=== PATIENT | male | born 1950 | race African-American/Black ===

== ENCOUNTER 2016-11-15 05:03 | Emergency (ER) | payer OTHER ==
[~2016-11-15] VITALS: Ht 182.9 cm; Wt 106.4 kg
[~2016-11-15 05:03] MED LIST: ALLOPURINOL100 MG PO; AMBIEN10 MG PO; Ambien PO; CARDIZEM30 MG PO; DICLOFENAC PO; ENDOCET 5-3251 EACH PO; FLEXERIL10 MG PO; GABAPENTIN PO; KADIAN30 MG PO; LISINOPRIL PO; METOCLOPRAMIDE10 MG PO; MORPHINE SULFAT15 M1 PO; MS CONTIN,ORAMO30 MG PO; MS Contin,Oramorph S PO; NEURONTIN300 MG PO; NEURONTIN600 MG PO; NOHOMEMEDS; Neurontin PO; OXYCODONE HCL20 M1 PO; PERCOCET 10-321 EACH PO; PERCOCET 10/1 TABLET PO; PERCOCET 5/31 TABLET PO; PERCOCET PO; PROTONIX40 MG PO; Protonix PO; TYLENOL REGULA325 MG PO; Voltaren PO; ZESTRIL,PRINIVI10 M1 PO; ZOFRAN4 MG PO; Zestoretic,Prinzide PO; oxyCODONE PO
[2016-11-15 05:57] LABS: CHLORIDE 104 mEq/L (99-109); POTASSIUM 3.6 mEq/L (3.7-5.4); SODIUM 136 mEq/L (136-147)
[2016-11-15 06:01] LABS: ANION GAP 9 MEQ/L (2-14)
[2016-11-15 06:02] LABS: TOTAL BILIRUBIN 0.8 mg/dL (0.0-1.0)
[2016-11-15 06:08] LABS: TROP-I INTERPRETATION NEGATIVE; TROPONIN-I 0.02 ng/mL (0.0-0.30)
[2016-11-15 06:09] LABS: EOSINOPHIL (%) 3.3 % (0-5); EOSINOPHIL COUNT 0.3 K/uL (0-0.3); GLUCOSE 146 mg/dL (70-99); HEMATOCRIT 38.1 % (38.0-50.0); IMMATURE GRANULOCYTE (%) 0.5 % (0.0-0.7); IMMATURE GRANULOCYTE COUNT 0.1 K/uL; INSTRUMENT ABS NEUTROPHIL CT 6.3 K/uL; LYMPHOCYTE COUNT 2.2 K/uL (1.0-2.8); MCH 24.1 PG (29.0-34.0); MCHC 31.2 G/DL (30.0-36.0); MCV 77.3 FL (86-99); MEAN PLAT.VOLUME 10.7 uM^3 (9.0-12.4); MONOCYTE (%) 7.6 % (3-12); MONOCYTE COUNT 0.7 K/uL (0-0.8); NEUTROPHIL (%) 65.9 % (45-76); NEUTROPHIL COUNT 6.3 K/uL (1.8-6.4); PLATELET COUNT 237 K/uL (156-360); RBC DIS.WIDTH-CV 14.6 % (11.8-14.6); RBC DIS.WIDTH-SD 40.5 % (39-53); RED BLOOD COUNT 4.93 M/uL (4.00-5.50); WHITE BLOOD COUNT 9.6 K/uL (4.1-10.2)
[2016-11-15 06:12] LABS: SERUM ETHYL ALCOHOL < 10 mg/dL
[2016-11-15 06:13] LABS: ALKALINE PHOSPHATASE 89 IU/L (3-129); GFR ESTIMATE (CALCULATED) > 59 mL/min/
[2016-11-15 06:14] LABS: UREA NITROGEN (BUN) 16 mg/dL (9-23)
[2016-11-15 07:21] LABS: AMPHETAMINE NEGATIVE (500 ng/mL); BENZODIAZEPINES NEGATIVE (150 ng/mL); COCAINE PRESUMPTIVE POSITIVE (150 ng/mL); METHAMPHETAMINE NEGATIVE (500 ng/mL); OPIATES (MORPHINE) PRESUMPTIVE POSITIVE (100 ng/mL); PHENCYCLIDINE NEGATIVE (25 ng/mL); THC CANNABINOIDS NEGATIVE (50 ng/mL); TRICYCLIC ANTIDEPRESSANTS NEGATIVE (300 ng/mL)
[2016-11-15 07:22] LABS: ADD MEDTOX COMMENT Y; BARBITURATES NEGATIVE (200 ng/mL); INTERNAL CONTROLS VALID? YES; METHADONE PRESUMPTIVE POSITIVE (200 ng/mL); OXYCODONE NEGATIVE (100 ng/mL); PROPOXYPHENE NEGATIVE (300 ng/mL)
[2016-11-15 08:05] LABS: SALICYLATE < 5.0 MG/DL (15-30)
[2016-11-15 08:58] VITALS: BP 112/81
== END 2016-11-15 09:00 ==
LOC: EME → EDBD 05:03 → EME 05:03
PROVIDERS: Emergency Medicine
DX: F19.10 Other psychoactive substance abuse, uncomplicated (principal); F11.90 Opioid use, unspecified, uncomplicated; F14.90 Cocaine use, unspecified, uncomplicated; G89.29 Other chronic pain; Z86.718 Personal history of other venous thrombosis and embolism; F17.200 Nicotine dependence, unspecified, uncomplicated
CPT/HCPCS: 71020; 80053; 84484; 84999; 85025; 93005; 99281; 99285; G0480

== ENCOUNTER 2017-03-11 15:17 | Emergency (ER) | payer OTHER ==
[~2017-03-11] VITALS: Ht 190.5 cm; Wt 104.0 kg
[2017-03-11 16:14] LABS: HEMATOCRIT 36.6 % (38.0-50.0); MCH 24.1 PG (29.0-34.0); MCHC 31.1 G/DL (30.0-36.0); MCV 77.2 FL (86-99); PLATELET COUNT 212 K/uL (156-360); RBC DIS.WIDTH-CV 15.1 % (11.8-14.6); RBC DIS.WIDTH-SD 41.4 % (39-53); RED BLOOD COUNT 4.74 M/uL (4.00-5.50)
[2017-03-11 16:22] LABS: CHLORIDE 107 mEq/L (99-109); POTASSIUM 3.6 mEq/L (3.7-5.4); SODIUM 141 mEq/L (136-147)
[2017-03-11 16:24] LABS: GLUCOSE 96 mg/dL (70-99)
[2017-03-11 16:25] LABS: ANION GAP 10 MEQ/L (2-14)
[2017-03-11 16:26] LABS: INTER. NORMALIZED RATIO 1.1; PTT 24.7 (25-32)
[2017-03-11 16:27] LABS: SERUM ETHYL ALCOHOL < 10 mg/dL
[2017-03-11 16:28] LABS: GFR ESTIMATE (CALCULATED) > 59 mL/min/
[2017-03-11 16:29] LABS: UREA NITROGEN (BUN) 8 mg/dL (9-23)
[2017-03-11 16:35] LABS: TROP-I INTERPRETATION NEGATIVE; TROPONIN-I < 0.01 ng/mL (0.0-0.30)
[2017-03-11 18:34] LABS: COCAINE PRESUMPTIVE POSITIVE (150 ng/mL); METHAMPHETAMINE NEGATIVE (500 ng/mL); PHENCYCLIDINE NEGATIVE (25 ng/mL); THC CANNABINOIDS NEGATIVE (50 ng/mL)
[2017-03-11 18:35] LABS: ADD MEDTOX COMMENT Y; AMPHETAMINE NEGATIVE (500 ng/mL); BARBITURATES NEGATIVE (200 ng/mL); BENZODIAZEPINES NEGATIVE (150 ng/mL); INTERNAL CONTROLS VALID? YES; METHADONE NEGATIVE (200 ng/mL); OPIATES (MORPHINE) PRESUMPTIVE POSITIVE (100 ng/mL); OXYCODONE NEGATIVE (100 ng/mL); PROPOXYPHENE NEGATIVE (300 ng/mL); TRICYCLIC ANTIDEPRESSANTS NEGATIVE (300 ng/mL)
[2017-03-11] MEDS ORDERED: XARELTO15 MG PO (21:10)
[2017-03-11 21:31] VITALS: BP 157/75
== END 2017-03-11 21:33 | disposition home or self-care (01) ==
LOC: EME 15:17
PROVIDERS: Emergency Medicine
DX: I82.431 Acute embolism and thrombosis of right popliteal vein (principal); I80.01 Phlebitis and thrombophlebitis of superficial vessels of right lower extremity; I82.511 Chronic embolism and thrombosis of right femoral vein; F14.988 Cocaine use, unspecified with other cocaine-induced disorder; R07.89 Other chest pain; M79.605 Pain in left leg; R20.2 Paresthesia of skin; R60.0 Localized edema; Z79.891 Long term (current) use of opiate analgesic; Z59.0 Homelessness; F17.200 Nicotine dependence, unspecified, uncomplicated
CPT/HCPCS: 71020; 71275; 80048; 84484; 84999; 85027; 85610; 85730; 93005; 93971; 99281; 99285; G0480

== ENCOUNTER 2017-04-13 19:45 | Emergency (ER) | payer OTHER ==
[~2017-04-13] VITALS: Ht 190.5 cm; Wt 97.8 kg
[~2017-04-13 19:45] MED LIST changes: +XARELTO15 MG PO
[2017-04-13 20:34] LABS: HEMATOCRIT 35.6 % (38.0-50.0); MCH 24.2 PG (29.0-34.0); MCV 75.4 FL (86-99); MEAN PLAT.VOLUME 9.8 uM^3 (9.0-12.4); PLATELET COUNT 196 K/uL (156-360); RBC DIS.WIDTH-CV 14.6 % (11.8-14.6); RBC DIS.WIDTH-SD 40.3 % (39-53); RED BLOOD COUNT 4.72 M/uL (4.00-5.50); WHITE BLOOD COUNT 5.7 K/uL (4.1-10.2)
[2017-04-13 20:38] LABS: CHLORIDE 110 mEq/L (99-109); SODIUM 141 mEq/L (136-147)
[2017-04-13 20:40] LABS: GLUCOSE 88 mg/dL (70-99)
[2017-04-13 20:41] LABS: ANION GAP 9 MEQ/L (2-14)
[2017-04-13 20:43] LABS: GFR ESTIMATE (CALCULATED) > 59 mL/min/
[2017-04-13 20:44] LABS: UREA NITROGEN (BUN) 12 mg/dL (9-23)
[2017-04-13 20:50] LABS: TROP-I INTERPRETATION NEGATIVE; TROPONIN-I < 0.01 ng/mL (0.0-0.30)
[2017-04-13 21:33] LABS: POINT-OF-CARE METER ID UU13113702
[2017-04-13 21:35] LABS: INTER. NORMALIZED RATIO 1.1; PROTHROMBIN TIME 12.5 SEC (10.2-12.9)
[2017-04-13 21:38] LABS: PTT 27.6 SEC (25-37)
[2017-04-13 23:02] LABS: TROP-I INTERPRETATION NEGATIVE; TROPONIN-I < 0.01 ng/mL (0.0-0.30)
[2017-04-13] MEDS ORDERED: AZITHROMYCIN250 MG1 PO (23:45)
[2017-04-14 00:26] VITALS: BP 130/76
== END 2017-04-14 00:31 | disposition home or self-care (01) ==
LOC: EME → EDBD 19:45 → EME 19:45
PROVIDERS: Emergency Medicine
DX: J40 Bronchitis, not specified as acute or chronic (principal); R07.9 Chest pain, unspecified; I10 Essential (primary) hypertension; F17.200 Nicotine dependence, unspecified, uncomplicated; Z86.718 Personal history of other venous thrombosis and embolism; Z88.6 Allergy status to analgesic agent; Z88.5 Allergy status to narcotic agent
CPT/HCPCS: 71020; 80048; 82948; 84484; 85027; 85610; 85730; 93005; 99281; 99285

== ENCOUNTER 2017-04-25 12:54 | Emergency (ER) | payer OTHER ==
[~2017-04-25] VITALS: Ht 190.5 cm; Wt 105.0 kg
[~2017-04-25 12:54] MED LIST changes: +AZITHROMYCIN250 MG1 PO
[2017-04-25] MEDS ORDERED: MOTRIN800 MG PO (15:47)
[2017-04-25 16:10] VITALS: BP 138/84
[2017-04-26] MEDS ORDERED: XARELTO10 MG PO (16:11)
== END 2017-04-25 16:15 | disposition home or self-care (01) ==
LOC: EME 12:54
DX: M79.604 Pain in right leg (principal); M79.605 Pain in left leg; M79.89 Other specified soft tissue disorders; R06.02 Shortness of breath; M71.22 Synovial cyst of popliteal space [Baker], left knee; Z86.718 Personal history of other venous thrombosis and embolism; I10 Essential (primary) hypertension; G89.29 Other chronic pain; F17.200 Nicotine dependence, unspecified, uncomplicated; F14.90 Cocaine use, unspecified, uncomplicated; Z88.6 Allergy status to analgesic agent
CPT/HCPCS: 93005; 93970; 99281; 99284

== ENCOUNTER 2017-04-26 12:01 | Inpatient (IN) | payer OTHER ==
[~2017-04-26] VITALS: Ht 190.5 cm; Wt 97.7 kg
[~2017-04-26 12:01] MED LIST changes: +MOTRIN800 MG PO
[2017-04-26 14:02] LABS: PHENCYCLIDINE NEGATIVE (25 ng/mL); THC CANNABINOIDS NEGATIVE (50 ng/mL)
[2017-04-26 14:03] LABS: ADD MEDTOX COMMENT Y; AMPHETAMINE NEGATIVE (500 ng/mL); BARBITURATES NEGATIVE (200 ng/mL); BENZODIAZEPINES NEGATIVE (150 ng/mL); COCAINE PRESUMPTIVE POSITIVE (150 ng/mL); INTERNAL CONTROLS VALID? YES; METHADONE NEGATIVE (200 ng/mL); METHAMPHETAMINE NEGATIVE (500 ng/mL); OPIATES (MORPHINE) PRESUMPTIVE POSITIVE (100 ng/mL); OXYCODONE NEGATIVE (100 ng/mL); PROPOXYPHENE NEGATIVE (300 ng/mL); TRICYCLIC ANTIDEPRESSANTS NEGATIVE (300 ng/mL)
[2017-04-26 14:21] LABS: EOSINOPHIL (%) 1.8 % (0-5); EOSINOPHIL COUNT 0.1 K/uL (0-0.3); HEMATOCRIT 36.9 % (38.0-50.0); IMMATURE GRANULOCYTE (%) 0.4 % (0.0-0.7); INSTRUMENT ABS NEUTROPHIL CT 3.9 K/uL; MCH 23.9 PG (29.0-34.0); MCHC 31.2 G/DL (30.0-36.0); MCV 76.7 FL (86-99); MEAN PLAT.VOLUME 10.1 uM^3 (9.0-12.4); MONOCYTE (%) 10.3 % (3-12); MONOCYTE COUNT 0.6 K/uL (0-0.8); NEUTROPHIL (%) 69.7 % (45-76); NEUTROPHIL COUNT 3.9 K/uL (1.8-6.4); PLATELET COUNT 185 K/uL (156-360); RBC DIS.WIDTH-SD 41.2 % (39-53); RED BLOOD COUNT 4.81 M/uL (4.00-5.50); WHITE BLOOD COUNT 5.5 K/uL (4.1-10.2)
[2017-04-26 14:29] LABS: CHLORIDE 110 mEq/L (99-109); POTASSIUM 3.8 mEq/L (3.7-5.4); SODIUM 144 mEq/L (136-147)
[2017-04-26 14:31] LABS: GLUCOSE 118 mg/dL (70-99)
[2017-04-26 14:33] LABS: ANION GAP 9 MEQ/L (2-14); TOTAL BILIRUBIN 0.8 mg/dL (0.0-1.0)
[2017-04-26 14:34] LABS: SERUM ETHYL ALCOHOL < 10 mg/dL
[2017-04-26 14:35] LABS: ALKALINE PHOSPHATASE 79 IU/L (3-129); GFR ESTIMATE (CALCULATED) > 59 mL/min/
[2017-04-26 14:36] LABS: UREA NITROGEN (BUN) 9 mg/dL (9-23)
[2017-04-26] MEDS ORDERED: XARELTO10 MG PO (16:11)
[2017-04-26 16:21] VITALS: BP 165/88
[2017-04-27 07:48] VITALS: BP 144/71
[2017-04-27 16:13] VITALS: BP 124/66
[2017-04-28 07:22] VITALS: BP 112/68
[2017-04-28 15:33] VITALS: BP 142/74
[2017-04-29 07:38] VITALS: BP 145/80
[2017-04-29 15:34] VITALS: BP 126/65
[2017-04-30 07:46] VITALS: BP 172/93
[2017-04-30 16:05] VITALS: BP 158/79
[2017-05-01 07:48] VITALS: BP 175/86
[2017-05-01] MEDS ORDERED: ROPINIROLE HCL1 MG PO (10:17)
[2017-05-01] MEDS ORDERED: DICLOFENAC SODI75 MG PO (10:17)
[2017-05-01] MEDS ORDERED: CITALOPRAM HBR20 MG PO (10:17)
== END 2017-05-01 13:00 | disposition home or self-care (01) | DRG 897 ==
LOC: EME 12:01 → EDOF 15:16 → 1WEST 15:16 → ENRESERV 15:56 → 1WEST 16:11
PROVIDERS: Emergency Medicine
DX: F11.23 Opioid dependence with withdrawal (principal); F14.20 Cocaine dependence, uncomplicated; F33.9 Major depressive disorder, recurrent, unspecified; R45.851 Suicidal ideations; F17.210 Nicotine dependence, cigarettes, uncomplicated; G25.81 Restless legs syndrome; G89.4 Chronic pain syndrome; I10 Essential (primary) hypertension; M17.0 Bilateral primary osteoarthritis of knee; M47.816 Spondylosis without myelopathy or radiculopathy, lumbar region
CPT/HCPCS: 80053; 84999; 85025; 90839; 97150 GO; 97165 GO; 99281; 99285; G0480; J0572; J0574; Q0177

== ENCOUNTER 2017-05-12 11:51 | Emergency (ER) | payer OTHER ==
[~2017-05-12] VITALS: Ht 190.5 cm; Wt 89.0 kg
[~2017-05-12 11:51] MED LIST changes: +CITALOPRAM HBR20 MG PO; +DICLOFENAC SODI75 MG PO; +ROPINIROLE HCL1 MG PO; +XARELTO10 MG PO
[2017-05-12 12:26] LABS: HEMATOCRIT 36.8 % (38.0-50.0); MCH 24.4 PG (29.0-34.0); MCHC 31.8 G/DL (30.0-36.0); MCV 76.8 FL (86-99); PLATELET COUNT 210 K/uL (156-360); RBC DIS.WIDTH-CV 15.3 % (11.8-14.6); RBC DIS.WIDTH-SD 41.9 % (39-53); RED BLOOD COUNT 4.79 M/uL (4.00-5.50); WHITE BLOOD COUNT 7.3 K/uL (4.1-10.2)
[2017-05-12 12:36] LABS: INTER. NORMALIZED RATIO 1.2; PROTHROMBIN TIME 12.7 SEC (10.2-12.9)
[2017-05-12 12:39] LABS: PTT 29.6 SEC (25-37)
[2017-05-12 12:41] LABS: CHLORIDE 109 mEq/L (99-109); SODIUM 142 mEq/L (136-147)
[2017-05-12 12:42] LABS: GLUCOSE 93 mg/dL (70-99)
[2017-05-12 12:44] LABS: ANION GAP 8 MEQ/L (2-14)
[2017-05-12 12:45] LABS: SERUM ETHYL ALCOHOL < 10 mg/dL
[2017-05-12 12:46] LABS: GFR ESTIMATE (CALCULATED) > 59 mL/min/
[2017-05-12 12:47] LABS: TROP-I INTERPRETATION NEGATIVE; TROPONIN-I < 0.01 ng/mL (0.0-0.30); UREA NITROGEN (BUN) 8 mg/dL (9-23)
[2017-05-12 13:19] LABS: AMPHETAMINE NEGATIVE (500 ng/mL); BARBITURATES NEGATIVE (200 ng/mL); BENZODIAZEPINES NEGATIVE (150 ng/mL); COCAINE PRESUMPTIVE POSITIVE (150 ng/mL); INTERNAL CONTROLS VALID? YES; METHADONE NEGATIVE (200 ng/mL); METHAMPHETAMINE NEGATIVE (500 ng/mL); OPIATES (MORPHINE) PRESUMPTIVE POSITIVE (100 ng/mL); OXYCODONE NEGATIVE (100 ng/mL); PHENCYCLIDINE NEGATIVE (25 ng/mL); PROPOXYPHENE NEGATIVE (300 ng/mL); THC CANNABINOIDS NEGATIVE (50 ng/mL); TRICYCLIC ANTIDEPRESSANTS NEGATIVE (300 ng/mL)
[2017-05-12 13:20] LABS: ADD MEDTOX COMMENT Y
[2017-05-12 15:27] LABS: TROP-I INTERPRETATION NEGATIVE; TROPONIN-I < 0.01 ng/mL (0.0-0.30)
[2017-05-12 19:22] VITALS: BP 163/97
== END 2017-05-12 19:35 | disposition home or self-care (01) ==
LOC: EME 11:51
PROVIDERS: Emergency Medicine
DX: R07.9 Chest pain, unspecified (principal); F14.10 Cocaine abuse, uncomplicated; F32.9 Major depressive disorder, single episode, unspecified; F34.1 Dysthymic disorder; F11.20 Opioid dependence, uncomplicated; I10 Essential (primary) hypertension; F17.200 Nicotine dependence, unspecified, uncomplicated; Z87.442 Personal history of urinary calculi; Z86.718 Personal history of other venous thrombosis and embolism; Z88.6 Allergy status to analgesic agent
CPT/HCPCS: 71020; 80048; 84484; 84999; 85027; 85610; 85730; 90839; 93005; 99281; 99285; G0480

== ENCOUNTER 2017-06-17 13:19 | Emergency (ER) | payer OTHER ==
[~2017-06-17] VITALS: Ht 190.5 cm; Wt 95.9 kg
[2017-06-17] MEDS ORDERED: MOBIC7.5 MG PO (19:05)
[2017-06-17 19:23] VITALS: BP 152/95
== END 2017-06-17 19:54 | disposition home or self-care (01) ==
LOC: EME 13:19
DX: M25.562 Pain in left knee (principal); M17.12 Unilateral primary osteoarthritis, left knee; G89.29 Other chronic pain; M25.561 Pain in right knee; M54.9 Dorsalgia, unspecified; R06.2 Wheezing; Z87.442 Personal history of urinary calculi; F17.200 Nicotine dependence, unspecified, uncomplicated
CPT/HCPCS: 73564; 99281; 99284

== ENCOUNTER 2017-06-19 13:58 | Emergency (ER) | payer OTHER ==
[~2017-06-19] VITALS: Ht 190.5 cm; Wt 95.8 kg
[~2017-06-19 13:58] MED LIST changes: +MOBIC7.5 MG PO
[2017-06-19] MEDS ORDERED: OXYCODONE HCL5 MG PO (16:06)
[2017-06-19 16:20] VITALS: BP 154/87
== END 2017-06-19 16:21 | disposition home or self-care (01) ==
LOC: EME 13:58
DX: M54.5 Low back pain (principal); F17.200 Nicotine dependence, unspecified, uncomplicated
CPT/HCPCS: 99281; 99284; J2270

== ENCOUNTER 2017-11-20 11:34 | Emergency (ER) | payer OTHER ==
[~2017-11-20] VITALS: Ht 190.5 cm; Wt 108.1 kg
[~2017-11-20 11:34] MED LIST changes: +OXYCODONE HCL5 MG PO
[2017-11-20 12:43] LABS: HEMOGLOBIN 10.6 G/DL (12.5-16.6); MCH 24.4 PG (29.0-34.0); MCHC 31.2 G/DL (30.0-36.0); MCV 78.3 FL (86-99); PLATELET COUNT 187 K/uL (156-360); RBC DIS.WIDTH-CV 14.7 % (11.8-14.6); RBC DIS.WIDTH-SD 42.3 % (39-53); RED BLOOD COUNT 4.34 M/uL (4.00-5.50); WHITE BLOOD COUNT 7.7 K/uL (4.1-10.2)
[2017-11-20 12:52] LABS: ALBUMIN 3.6 g/dL (3.2-4.8); CHLORIDE 104 mEq/L (99-109); POTASSIUM 4.3 mEq/L (3.7-5.4); SODIUM 140 mEq/L (136-147)
[2017-11-20 12:54] LABS: GLUCOSE 94 mg/dL (70-99); TOTAL PROTEIN 7.1 g/dL (6.4-8.3)
[2017-11-20 12:56] LABS: TOTAL BILIRUBIN 0.5 mg/dL (0.0-1.0)
[2017-11-20 12:58] LABS: ALKALINE PHOSPHATASE 94 IU/L (3-129); CREATININE 0.9 mg/dL (0.6-1.3); GFR ESTIMATE (CALCULATED) > 59 mL/min/ (58.99-99999)
[2017-11-20 12:59] LABS: AST (GOT) 33 IU/L (2-34); UREA NITROGEN (BUN) 12 mg/dL (9-23)
[2017-11-20 13:01] LABS: ALT (GPT) 29 IU/L (3-49)
[2017-11-20] MEDS ORDERED: NAPROSYN500 MG PO (14:30)
[2017-11-20 15:01] VITALS: BP 135/79
== END 2017-11-20 15:03 | disposition home or self-care (01) ==
LOC: EME 11:34
PROVIDERS: Nurse Practitioner Family
DX: R60.0 Localized edema (principal); G89.29 Other chronic pain; M54.9 Dorsalgia, unspecified; M79.604 Pain in right leg; M79.605 Pain in left leg; M79.673 Pain in unspecified foot; R26.2 Difficulty in walking, not elsewhere classified; F11.20 Opioid dependence, uncomplicated; F17.210 Nicotine dependence, cigarettes, uncomplicated; Z86.718 Personal history of other venous thrombosis and embolism; I44.0 Atrioventricular block, first degree; Z87.442 Personal history of urinary calculi
CPT/HCPCS: 71046; 80053; 83880; 85027; 93005; 99281; 99283

== ENCOUNTER 2017-11-25 06:42 | Emergency (ER) | payer OTHER ==
[~2017-11-25] VITALS: Ht 190.5 cm; Wt 107.8 kg
[~2017-11-25 06:42] MED LIST changes: +NAPROSYN500 MG PO
[2017-11-25 07:21] LABS: BASOPHIL (%) 0.4 % (0-1); EOSINOPHIL (%) 4.2 % (0-5); EOSINOPHIL COUNT 0.3 K/uL (0-0.3); HEMATOCRIT 34.2 % (38.0-50.0); HEMOGLOBIN 10.5 G/DL (12.5-16.6); IMMATURE GRANULOCYTE (%) 0.1 % (0.0-0.7); LYMPHOCYTE (%) 30.1 % (15-42); MCH 24.1 PG (29.0-34.0); MCHC 30.7 G/DL (30.0-36.0); MCV 78.4 FL (86-99); MONOCYTE (%) 11.7 % (3-12); MONOCYTE COUNT 0.8 K/uL (0-0.8); NEUTROPHIL (%) 53.5 % (45-76); NEUTROPHIL COUNT 3.6 K/uL (1.8-6.4); PLATELET COUNT 186 K/uL (156-360); RBC DIS.WIDTH-CV 15.1 % (11.8-14.6); RBC DIS.WIDTH-SD 42.9 % (39-53); RED BLOOD COUNT 4.36 M/uL (4.00-5.50); WHITE BLOOD COUNT 6.7 K/uL (4.1-10.2)
[2017-11-25 07:40] LABS: CHLORIDE 105 mEq/L (99-109); POTASSIUM 4.5 mEq/L (3.7-5.4); SODIUM 143 mEq/L (136-147)
[2017-11-25 07:41] LABS: GLUCOSE 90 mg/dL (70-99)
[2017-11-25 07:45] LABS: CREATININE 0.9 mg/dL (0.6-1.3); GFR ESTIMATE (CALCULATED) > 59 mL/min/ (58.99-99999)
[2017-11-25 07:46] LABS: UREA NITROGEN (BUN) 15 mg/dL (9-23)
[2017-11-25 09:44] VITALS: BP 156/80
== END 2017-11-25 10:36 | disposition home or self-care (01) ==
LOC: EME 06:42
PROVIDERS: Emergency Medicine
DX: M79.89 Other specified soft tissue disorders (principal); J40 Bronchitis, not specified as acute or chronic; F14.10 Cocaine abuse, uncomplicated; R51 Headache; I10 Essential (primary) hypertension; Z86.718 Personal history of other venous thrombosis and embolism; Z87.442 Personal history of urinary calculi; F17.200 Nicotine dependence, unspecified, uncomplicated
CPT/HCPCS: 71045; 80048; 85025; 93005; 93970; 99281; 99285

== ENCOUNTER 2017-11-27 04:35 | Emergency (ER) | payer OTHER ==
[~2017-11-27] VITALS: Ht 190.5 cm; Wt 105.2 kg
[2017-11-27 05:54] LABS: HEMATOCRIT 33.2 % (38.0-50.0); HEMOGLOBIN 10.6 G/DL (12.5-16.6); MCH 24.7 PG (29.0-34.0); MCHC 31.9 G/DL (30.0-36.0); MCV 77.4 FL (86-99); PLATELET COUNT 183 K/uL (156-360); RBC DIS.WIDTH-SD 41.1 % (39-53); RED BLOOD COUNT 4.29 M/uL (4.00-5.50); WHITE BLOOD COUNT 6.6 K/uL (4.1-10.2)
[2017-11-27 06:02] LABS: CHLORIDE 105 mEq/L (99-109); POTASSIUM 4.3 mEq/L (3.7-5.4); SODIUM 139 mEq/L (136-147)
[2017-11-27 06:03] LABS: GLUCOSE 92 mg/dL (70-99)
[2017-11-27 06:07] LABS: CREATININE 0.8 mg/dL (0.6-1.3); GFR ESTIMATE (CALCULATED) > 59 mL/min/ (58.99-99999)
[2017-11-27 06:08] LABS: UREA NITROGEN (BUN) 18 mg/dL (9-23)
[2017-11-27 06:13] LABS: TROP-I INTERPRETATION NEGATIVE; TROPONIN-I < 0.01 ng/mL (0.0-0.30)
[2017-11-27 08:51] LABS: TROP-I INTERPRETATION NEGATIVE; TROPONIN-I < 0.01 ng/mL (0.0-0.30)
[2017-11-27 10:42] VITALS: BP 157/86
== END 2017-11-27 10:43 | disposition home or self-care (01) ==
LOC: EME → EDBD 04:35 → EME 04:35
PROVIDERS: Emergency Medicine
DX: R07.89 Other chest pain (principal); I10 Essential (primary) hypertension; R06.00 Dyspnea, unspecified; F17.200 Nicotine dependence, unspecified, uncomplicated; Z86.718 Personal history of other venous thrombosis and embolism; Z86.711 Personal history of pulmonary embolism; Z88.6 Allergy status to analgesic agent; Z88.5 Allergy status to narcotic agent
CPT/HCPCS: 71275; 80048; 83880; 84484; 85027; 93005; 99281; 99285; J2060

== ENCOUNTER 2017-12-04 05:53 | Emergency (ER) | payer OTHER ==
[~2017-12-04] VITALS: Ht 191.8 cm; Wt 104.2 kg
[2017-12-04 06:22] LABS: HEMATOCRIT 35.8 % (38.0-50.0); HEMOGLOBIN 11.3 G/DL (12.5-16.6); MCH 24.5 PG (29.0-34.0); MCHC 31.6 G/DL (30.0-36.0); MCV 77.7 FL (86-99); PLATELET COUNT 166 K/uL (156-360); RBC DIS.WIDTH-CV 15.3 % (11.8-14.6); RBC DIS.WIDTH-SD 42.5 % (39-53); RED BLOOD COUNT 4.61 M/uL (4.00-5.50); WHITE BLOOD COUNT 7.7 K/uL (4.1-10.2)
[2017-12-04 06:29] LABS: CHLORIDE 108 mEq/L (99-109)
[2017-12-04 06:30] LABS: POTASSIUM 4.3 mEq/L (3.7-5.4); SODIUM 140 mEq/L (136-147)
[2017-12-04 06:31] LABS: GLUCOSE 103 mg/dL (70-99)
[2017-12-04 06:35] LABS: CREATININE 0.9 mg/dL (0.6-1.3); GFR ESTIMATE (CALCULATED) > 59 mL/min/ (58.99-99999)
[2017-12-04 06:36] LABS: UREA NITROGEN (BUN) 16 mg/dL (9-23)
[2017-12-04 06:43] LABS: TROP-I INTERPRETATION NEGATIVE; TROPONIN-I 0.01 ng/mL (0.0-0.30)
[2017-12-04 09:10] VITALS: BP 161/100
== END 2017-12-04 09:47 | disposition home or self-care (01) ==
LOC: EME → EDBD 05:53 → EME 09:47
PROVIDERS: Emergency Medicine
DX: R60.0 Localized edema (principal); I44.0 Atrioventricular block, first degree; I10 Essential (primary) hypertension; Z87.442 Personal history of urinary calculi; Z86.718 Personal history of other venous thrombosis and embolism; F17.200 Nicotine dependence, unspecified, uncomplicated; Z88.5 Allergy status to narcotic agent; Z88.6 Allergy status to analgesic agent; Z88.8 Allergy status to other drugs, medicaments and biological substances
CPT/HCPCS: 71045; 80048; 83880; 84484; 85027; 93005; 99281; 99285

== ENCOUNTER 2017-12-11 05:10 | Emergency (ER) | payer OTHER ==
[~2017-12-11] VITALS: Ht 190.5 cm; Wt 99.2 kg
[2017-12-11 06:40] LABS: ALBUMIN 4.5 g/dL (3.2-4.8); POTASSIUM 4.2 mEq/L (3.7-5.4); SODIUM 136 mEq/L (136-147)
[2017-12-11 06:41] LABS: MAGNESIUM 2.3 mg/dL (1.3-2.7)
[2017-12-11 06:42] LABS: GLUCOSE 107 mg/dL (70-99)
[2017-12-11 06:43] LABS: CHLORIDE 95 mEq/L (99-109); TOTAL PROTEIN 8.2 g/dL (6.4-8.3)
[2017-12-11 06:44] LABS: TOTAL BILIRUBIN 1.4 mg/dL (0.0-1.0)
[2017-12-11 06:46] LABS: ALKALINE PHOSPHATASE 93 IU/L (3-129); CREATININE 1.3 mg/dL (0.6-1.3); GFR ESTIMATE (CALCULATED) > 59 mL/min/ (58.99-99999)
[2017-12-11 06:48] LABS: AST (GOT) 50 IU/L (2-34); UREA NITROGEN (BUN) 28 mg/dL (9-23)
[2017-12-11 06:49] LABS: ALT (GPT) 44 IU/L (3-49)
[2017-12-11 07:06] LABS: HEMATOCRIT 39.8 % (38.0-50.0); HEMOGLOBIN 12.9 G/DL (12.5-16.6); MCH 24.4 PG (29.0-34.0); MCHC 32.4 G/DL (30.0-36.0); MCV 75.2 FL (86-99); PLATELET COUNT 153 K/uL (156-360); RBC DIS.WIDTH-SD 40.6 % (39-53); RED BLOOD COUNT 5.29 M/uL (4.00-5.50); WHITE BLOOD COUNT 7.7 K/uL (4.1-10.2)
[2017-12-11 07:27] LABS: TROP-I INTERPRETATION NEGATIVE; TROPONIN-I < 0.01 ng/mL (0.0-0.30)
[2017-12-11 08:21] VITALS: BP 121/81
== END 2017-12-11 08:30 | disposition home or self-care (01) ==
LOC: EME 05:10
PROVIDERS: Emergency Medicine
DX: M79.1 Myalgia (principal); M50.31 Other cervical disc degeneration, high cervical region; Z98.1 Arthrodesis status; Z88.6 Allergy status to analgesic agent; Z88.5 Allergy status to narcotic agent; Z88.8 Allergy status to other drugs, medicaments and biological substances
CPT/HCPCS: 71046; 72040; 73030; 80053; 83735; 84484; 85027; 85027 GA; 99281; 99284

== ENCOUNTER 2017-12-19 01:06 | Observation (INO) | payer OTHER ==
[~2017-12-19] VITALS: Ht 191.8 cm; Wt 101.7 kg
[2017-12-19 01:51] LABS: HEMATOCRIT 32.5 % (38.0-50.0); HEMOGLOBIN 10.6 G/DL (12.5-16.6); MCH 24.6 PG (29.0-34.0); MCHC 32.6 G/DL (30.0-36.0); MCV 75.4 FL (86-99); PLATELET COUNT 182 K/uL (156-360); RBC DIS.WIDTH-CV 14.3 % (11.8-14.6); RBC DIS.WIDTH-SD 39.1 % (39-53); RED BLOOD COUNT 4.31 M/uL (4.00-5.50); WHITE BLOOD COUNT 13.2 K/uL (4.1-10.2)
[2017-12-19 01:58] LABS: CHLORIDE 94 mEq/L (99-109); SODIUM 134 mEq/L (136-147)
[2017-12-19 01:59] LABS: GLUCOSE 108 mg/dL (70-99)
[2017-12-19 02:03] LABS: CREATININE 0.9 mg/dL (0.6-1.3); GFR ESTIMATE (CALCULATED) > 59 mL/min/ (58.99-99999)
[2017-12-19 02:04] LABS: UREA NITROGEN (BUN) 18 mg/dL (9-23)
[2017-12-19 02:38] LABS: ERTH.SED.RATE 96 MM/HR (0-20)
[2017-12-19 04:29] LABS: SYNOVIAL FLUID GLUCOSE 46 MG/DL; SYNOVIAL FLUID PROTEIN 4.1 G/DL
[2017-12-19] MEDS ORDERED: METHADOSE40 MG PO (05:30)
[2017-12-19 07:07] LABS: SERUM ETHYL ALCOHOL < 10 mg/dL; URIC ACID 8.2 mg/dL (3.1-9.2)
[2017-12-19 07:32] LABS: APPEARANCE CLOUDY/YELLOW; WHITE CELL COUNT 47000 /MM^3 (0-200.0)
[2017-12-19 07:33] LABS: RED CELL COUNT 2000 /MM^3 (0-1)
[2017-12-19 07:35] LABS: MONONUCLEAR WBC'S 1 %; POLYNUCLEAR WBC'S 99 % (0-25); SYNOVIAL FLUID EOSINOPHILS 0 % (0-25)
[2017-12-19 11:00] VITALS: BP 143/76
[2017-12-19 15:26] VITALS: BP 142/81
[2017-12-19 19:00] VITALS: BP 132/69
[2017-12-20 00:08] LABS: APPEARANCE CLEAR ((CLEAR)); BILIRUBIN SMALL; BLOOD NEGATIVE; COLOR AMBER ((YELLOW)); GLUCOSE (STRIP) NEGATIVE; KETONES NEGATIVE; LEUKOCYTES NEGATIVE; NITRITE NEGATIVE; PROTEIN (STRIP) 30; SPECIFIC GRAVITY 1.024 (1.000-1.030); UCUL ADDED? NO
[2017-12-20 00:40] VITALS: BP 130/68
[2017-12-20 05:04] VITALS: BP 120/70
[2017-12-20 08:01] VITALS: BP 118/62
[2017-12-20 10:11] LABS: BASOPHIL (%) 0.2 % (0-1); EOSINOPHIL (%) 2.1 % (0-5); EOSINOPHIL COUNT 0.2 K/uL (0-0.3); HEMATOCRIT 30.5 % (38.0-50.0); HEMOGLOBIN 9.6 G/DL (12.5-16.6); LYMPHOCYTE (%) 18.1 % (15-42); LYMPHOCYTE COUNT 1.9 K/uL (1.0-2.8); MCH 24.2 PG (29.0-34.0); MCHC 31.5 G/DL (30.0-36.0); MCV 76.8 FL (86-99); MONOCYTE (%) 12.2 % (3-12); MONOCYTE COUNT 1.3 K/uL (0-0.8); NEUTROPHIL (%) 66.4 % (45-76); PLATELET COUNT 169 K/uL (156-360); RBC DIS.WIDTH-CV 14.6 % (11.8-14.6); RBC DIS.WIDTH-SD 40.2 % (39-53); RED BLOOD COUNT 3.97 M/uL (4.00-5.50); WHITE BLOOD COUNT 10.5 K/uL (4.1-10.2)
[2017-12-20 13:32] VITALS: BP 123/65
[2017-12-20] MEDS ORDERED: MICRO-K10 ME2 PO (15:18)
[2017-12-20] MEDS ORDERED: FUROSEMIDE40 MG PO (15:19)
[2017-12-20] MEDS ORDERED: NAPROXEN500 MG PO (15:20)
[2017-12-20 16:34] VITALS: BP 129/66
[2017-12-20 17:46] LABS: CHLORIDE 103 MEQ/L (99-109); CREATININE 0.9 MG/DL (0.6-1.3); GFR ESTIMATE (CALCULATED) > 59 mL/min/ (58.99-99999); GLUCOSE 125 mg/dL (70-99); POTASSIUM 4.5 MEQ/L (3.7-5.4); SODIUM 135 MEQ/L (136-147); UREA NITROGEN (BUN) 17 mg/dL (9-23)
[2017-12-20 19:15] VITALS: BP 124/73
[2017-12-21 00:47] VITALS: BP 156/82
[2017-12-21 04:58] VITALS: BP 139/71
[2017-12-21 08:09] VITALS: BP 147/73
[2017-12-21 09:22] LABS: HEMOGLOBIN 9.9 G/DL (12.5-16.6); MCH 23.7 PG (29.0-34.0); MCHC 30.9 G/DL (30.0-36.0); MCV 76.6 FL (86-99); RBC DIS.WIDTH-CV 14.3 % (11.8-14.6); RBC DIS.WIDTH-SD 39.8 % (39-53); RED BLOOD COUNT 4.18 M/uL (4.00-5.50); WHITE BLOOD COUNT 15.7 K/uL (4.1-10.2)
[2017-12-21 09:50] LABS: CHLORIDE 105 MEQ/L (99-109); CREATININE 0.8 MG/DL (0.6-1.3); GFR ESTIMATE (CALCULATED) > 59 mL/min/ (58.99-99999); GLUCOSE 159 mg/dL (70-99); POTASSIUM 5.2 MEQ/L (3.7-5.4); SODIUM 135 MEQ/L (136-147); UREA NITROGEN (BUN) 21 mg/dL (9-23)
[2017-12-21 09:54] LABS: PLAT.SUFFICIENCY ADEQUATE; PLATELET COUNT 198 K/uL (156-360)
[2017-12-21 11:41] VITALS: BP 154/79
[2017-12-21 15:44] VITALS: BP 143/72
[2017-12-21 20:32] VITALS: BP 143/70
[2017-12-22 00:51] VITALS: BP 137/74
[2017-12-22 05:19] LABS: BASOPHIL (%) 0.1 % (0-1); EOSINOPHIL (%) 0.1 % (0-5); HEMOGLOBIN 10.1 G/DL (12.5-16.6); IMMATURE GRANULOCYTE (%) 0.7 % (0.0-0.7); LYMPHOCYTE (%) 9.5 % (15-42); LYMPHOCYTE COUNT 1.6 K/uL (1.0-2.8); MCH 23.5 PG (29.0-34.0); MCHC 30.6 G/DL (30.0-36.0); MCV 76.7 FL (86-99); MONOCYTE (%) 6.7 % (3-12); MONOCYTE COUNT 1.2 K/uL (0-0.8); NEUTROPHIL (%) 82.9 % (45-76); NEUTROPHIL COUNT 14.3 K/uL (1.8-6.4); PLATELET COUNT 237 K/uL (156-360); RBC DIS.WIDTH-CV 14.5 % (11.8-14.6); WHITE BLOOD COUNT 17.2 K/uL (4.1-10.2)
[2017-12-22 06:13] LABS: CHLORIDE 107 MEQ/L (99-109); CREATININE 0.8 MG/DL (0.6-1.3); GFR ESTIMATE (CALCULATED) > 59 mL/min/ (58.99-99999); GLUCOSE 140 mg/dL (70-99); SODIUM 138 MEQ/L (136-147); UREA NITROGEN (BUN) 23 mg/dL (9-23)
[2017-12-22 06:17] LABS: POTASSIUM 4.1 MEQ/L (3.7-5.4)
[2017-12-22 08:01] VITALS: BP 141/74
[2017-12-22 11:59] VITALS: BP 138/76
[2017-12-22] MEDS ORDERED: COLCHICINE0.6 M1 PO (12:43)
[2017-12-22] MEDS ORDERED: PREDNISONE20 MG PO (12:45)
[2017-12-22] MEDS ORDERED: PERCOCET 5/31 TABLET PO (12:46)
== END 2017-12-22 13:55 | disposition home or self-care (01) ==
LOC: EME 01:06 → EDOF 05:03 → 4SOUTH 05:03 → EDOF 05:03 → ENRESERV 05:09 → 4SOUTH 10:06
PROVIDERS: Emergency Medicine; Internal Medicine; Physician Assistant Medical
PROC: 0S9D3ZZ Drainage of Left Knee Joint, Percutaneous Approach (ICD-10-PCS; principal; 2017-12-19)
DX: M10.9 Gout, unspecified (principal); G89.29 Other chronic pain; M25.562 Pain in left knee; M25.462 Effusion, left knee; M17.32 Unilateral post-traumatic osteoarthritis, left knee; D72.829 Elevated white blood cell count, unspecified; E87.8 Other disorders of electrolyte and fluid balance, not elsewhere classified; E87.6 Hypokalemia; F19.288 Other psychoactive substance dependence with other psychoactive substance-induced disorder; F11.20 Opioid dependence, uncomplicated; F17.210 Nicotine dependence, cigarettes, uncomplicated; Z86.718 Personal history of other venous thrombosis and embolism; I73.9 Peripheral vascular disease, unspecified; M19.90 Unspecified osteoarthritis, unspecified site; M54.5 Low back pain
CPT/HCPCS: 73564; 80048; 80306 90; 81003; 82945 91; 83605; 83735; 84157; 84550; 85025; 85027; 85651; 86140; 87040; 87205; 89051; 89060; 99281; 99285; G0378; G0480; G8978 GP CJ; G8979 GP CH; J0696; J1650; J2930; J3010; J3370; J3480; J7030; J7512

== ENCOUNTER 2018-01-10 04:14 | Emergency (ER) | payer OTHER ==
[~2018-01-10] VITALS: Ht 190.5 cm; Wt 111.0 kg
[~2018-01-10 04:14] MED LIST changes: +COLCHICINE0.6 M1 PO; +FUROSEMIDE40 MG PO; +METHADOSE40 MG PO; +MICRO-K10 ME2 PO; +NAPROXEN500 MG PO; +PREDNISONE20 MG PO
[2018-01-10 04:44] LABS: HEMATOCRIT 32.3 % (38.0-50.0); HEMOGLOBIN 10.2 G/DL (12.5-16.6); MCH 24.4 PG (29.0-34.0); MCHC 31.6 G/DL (30.0-36.0); MCV 77.3 FL (86-99); RBC DIS.WIDTH-CV 16.3 % (11.8-14.6); RBC DIS.WIDTH-SD 45.3 % (39-53); RED BLOOD COUNT 4.18 M/uL (4.00-5.50); WHITE BLOOD COUNT 8.4 K/uL (4.1-10.2)
[2018-01-10 04:56] LABS: CHLORIDE 104 mEq/L (99-109); POTASSIUM 4.2 mEq/L (3.7-5.4); SODIUM 140 mEq/L (136-147)
[2018-01-10 04:58] LABS: GLUCOSE 173 mg/dL (70-99)
[2018-01-10 05:01] LABS: GFR ESTIMATE (CALCULATED) > 59 mL/min/ (58.99-99999)
[2018-01-10 05:02] LABS: UREA NITROGEN (BUN) 13 mg/dL (9-23)
[2018-01-10 05:09] LABS: TROP-I INTERPRETATION NEGATIVE; TROPONIN-I < 0.01 ng/mL (0.0-0.30)
[2018-01-10 05:23] LABS: PLAT.SUFFICIENCY DECREASED
[2018-01-10 05:35] LABS: PLATELET COUNT 118 K/uL (156-360)
[2018-01-10 06:08] LABS: ALBUMIN 3.5 g/dL (3.2-4.8)
[2018-01-10 06:11] LABS: TOTAL PROTEIN 6.2 g/dL (6.4-8.3)
[2018-01-10 06:13] LABS: TOTAL BILIRUBIN 0.5 mg/dL (0.0-1.0)
[2018-01-10 06:14] LABS: ALKALINE PHOSPHATASE 85 IU/L (3-129)
[2018-01-10 06:16] LABS: AST (GOT) 15 IU/L (2-34); DIRECT BILIRUBIN 0.3 mg/dL (0.0-0.3)
[2018-01-10 06:17] LABS: ALT (GPT) 19 IU/L (3-49); LIPASE 11 U/L (1.0-51.0)
[2018-01-10] MEDS ORDERED: POTASSIUM CHLO10 ME3 PO (08:17)
[2018-01-10] MEDS ORDERED: LASIX40 MG PO (08:17)
[2018-01-10] MEDS ORDERED: ROXICODONE5 MG PO (08:17)
[2018-01-10] MEDS ORDERED: NAPROSYN500 MG PO (08:17)
[2018-01-10 08:28] VITALS: BP 114/87
== END 2018-01-10 08:53 | disposition home or self-care (01) ==
LOC: EME → EDBD 04:14 → EME 04:14
PROVIDERS: Emergency Medicine
DX: R60.0 Localized edema (principal); R07.9 Chest pain, unspecified; I11.0 Hypertensive heart disease with heart failure; I50.9 Heart failure, unspecified; G89.29 Other chronic pain; Z86.718 Personal history of other venous thrombosis and embolism; Z87.828 Personal history of other (healed) physical injury and trauma; Z87.442 Personal history of urinary calculi; F17.200 Nicotine dependence, unspecified, uncomplicated; Z88.6 Allergy status to analgesic agent; Z88.5 Allergy status to narcotic agent
CPT/HCPCS: 71045; 80048; 80076; 83690; 83880; 84484; 85027; 93005; 93971; 99281; 99285; J1940